=== PATIENT | male | born 1950 | race Caucasian/White ===

== ENCOUNTER → 2017-02-19 | Outpatient (CLI) | payer OTHER ==
[~2017-02-19] MED LIST: GLUCOPHAGE XR500 MG PO; LIPITOR10 MG PO; LO-DOSE ASPIRIN81 M1 PO; TESTOSTERONE75 GM TOP
--- NOTE | ~2017-02-19 | EKG ---
[address] [address] ELECTROCARDIOGRAM REPORT Name: MOLLYNILAM [id number] Admission: 02/19/17 Attend Phys: Hemal Nicole MD Discharge: Date of : 50 Report #: [id number] THIS REPORT FOR: //name// [facility] Test Date: 2017-02-19 Test Time: 07:24:29 Pat Name: NILAM BARNES Department: Room: Gender: Supervisor Garage: RENZO : 1950 Requested By: Hemal Nicole Order Number: [id number] MD: Herrera Mckeon Measurements Intervals [place] Rate: 75 P: 29 DE: 154 QRS: 0 QRSD: 95 T: 15 QT: 386 QTc: 432 Interpretive Statements Sinus rhythm No previous ECG available for comparison Electronically Signed On 02-19-2017 8:35:03 CDT by Herrera Mckeon [email or web address] <ELECTRONICALLY SIGNED> By: Herrera Mckeon MD 02/19/17 0835 0724 0724 Herrera Mckeon MD /JULIO CESAR
== END | disposition home or self-care (01) ==
LOC: LITH 06:55
DX: N20.1 Calculus of ureter (principal); E11.9 Type 2 diabetes mellitus without complications; G47.33 Obstructive sleep apnea (adult) (pediatric); Z90.49 Acquired absence of other specified parts of digestive tract; Z98.890 Other specified postprocedural states; Z79.82 Long term (current) use of aspirin; Z79.4 Long term (current) use of insulin

== ENCOUNTER → 2017-04-08 | Outpatient (CLI) | payer OTHER | LOC: LITH 08:15 | DX: N20.0 Calculus of kidney (principal); G47.33 Obstructive sleep apnea (adult) (pediatric); Z90.49 Acquired absence of other specified parts of digestive tract; Z98.890 Other specified postprocedural states; Z79.82 Long term (current) use of aspirin; Z79.899 Other long term (current) drug therapy ==